=== PATIENT | female | born 2000 | race Caucasian/White ===

== ENCOUNTER → 2024-01-22 17:07 | Outpatient (REF) | payer BC, SELFPAY | LOC: RAD 17:07 | PROVIDERS: ATTENDING PHYSICIAN Physician Assistant Medical; FAMILY PHYSICIAN Family Medicine | DX: M25.561 Pain in right knee (principal) | CPT/HCPCS: 73564 ==

== ENCOUNTER 2024-08-02 18:09 | Emergency (ER) | payer BC, SELFPAY ==
[2024-08-02 18:11] VITALS: BP 112/76
[2024-08-02 21:37] VITALS: BP 122/77
--- NOTE | 2024-08-02 22:49 | ED.GENMED ---
History of Present Illness
General
Chief Complaint: Eye Problems
Source: patient
Exam Limitations: none
Time Seen by Provider: 08/02/24 22:21
Nursing documentation reviewed up to this point in time: agreed with
History of Present Illness
History of Present Illness:
Patient is a 24-year-old female presenting to the emergency department for evaluation of swelling of her right eye. Patient states she woke up this morning with pain and swelling mainly of her right upper lid. She feels that pain in her right lid
has progressed up the day. Patient also feels that her left eyelid is also swollen. Patient denies any discharge from eyes. No loss of vision. Patient denies any pain with movement of her eyes. No headache. Patient denies any fever, chills,
other upper respiratory symptoms including nasal congestion, cough, sore throat.
Of note�patient does states she had similar symptoms 1 month ago and was seen by her primary care who prescribed oral steroids.
Patient denies any known sick contacts although she is a schoolteacher for first-graders.
Patient does wear contact lenses.
Past History
Past History
ED Past Medical History: None
ED Past Surgical History: Other (Pyloric stenosis)
Social History
Tobacco: Non-smoker
Alcohol: None
Personal: Single
Living: other (Student)
Review of Systems
Review of Systems
Allergies reviewed?: Yes
All Other Systems: ROS reviewed and negative except as documented in HPI and ROS
Phy Exam
Physical Exam
Physical Exam:
Vitals: Patient's vital signs are stable. Afebrile
General: Patient is well appearing, no acute distress. Nontoxic appearing
Skin: Warm and dry, no rashes or lesions
Head: Normocephalic, atraumatic
Eyes: Mild erythema and edema to right upper lid. No surrounding erythema of periorbital skin. No notable edema or erythema of left upper lid. Conjunctival clear bilaterally without drainage. EOMs intact bilaterally without pain. Pupils equal
round and reactive light bilaterally. No proptosis or chemosis bilaterally.
Throat: Protecting airway
Neck: Normal ROM, no cervical spine tenderness
Cardiac: Regular rate
Pulm: No apparent respiratory distress
Abdomen: Nondistended
Extremities: No evidence of cyanosis or edema
Neuro: Grossly intact
Psychiatric: Normal affect.
Course
Orders/Labs/Results
Orders:
Orders
08/02/24 22:30
Visual Acuity- Treatment ONCE
08/02/24 23:03
Amoxicillin 875 mg/Clav 125 mg [Augmentin 875 mg/125 mg] 1 tablet PO NOW STA
Vital Signs
Initial and Last Documented VS:
Initial Vital Signs
Temp Pulse Resp BP Pulse Ox
97.6 F 77 20 112/76 99
08/02/24 18:11 08/02/24 18:11 08/02/24 18:11 08/02/24 18:11 08/02/24 18:11
Last Documented Vital Signs
Temp Pulse Resp BP Pulse Ox
97.6 F 80 17 122/77 99
08/02/24 18:11 08/02/24 21:37 08/02/24 21:37 08/02/24 21:37 08/02/24 21:37
MDM/Problems Addressed
Differential Diagnosis Includes:
Not limited to: Blepharitis, hordeolum, preseptal cellulitis, allergic conjunctivitis, orbital cellulitis, etc.
MDM/Problems Addressed:
24-year-old female with swelling to right upper eyelid since this morning. No fevers, headache, pain with eye movements. No ocular discharge or drainage. No true vision loss. Vital stable. Patient is afebrile visual acuity obtained and
documented. Physical exam as above. Patient very well-appearing, in no apparent distress. There is notable erythema and edema to right upper lid without any surrounding cellulitis. No obvious stye left eye without obvious edema or erythema.
Conjunctival clear bilaterally. It is possible that there is an evolving component of preseptal cellulitis given pain and erythema. Although ultimately�suspect this is likely a blepharitis, possible allergic etiology. Do not suspect orbital
cellulitis as patient has no systemic symptoms or pain with extraocular movements. Will plan to cover patient with Augmentin for possible preseptal cellulitic component. Will recommend frequent warm compresses for suspected blepharitis. Advised
close follow-up with eye doctor outpatient to ensure improving. Close return precautions discussed including signs of worsening infection, changes in vision. Ultimately�feel patient stable for discharge with outpatient follow-up. Case discussed
with attending physician. Patient comfortable with this plan.
Chronic conditions affecting care:
N/A
Acute Exacerbation and/or Progression of Chronic Illness:
N/A
*Pulse Oximetry
Patient hypoxic: no
*EKG
Interpreted by ED Provider?: NA
*Clam Dredger Interpretation
Rate: Clam Dredger- N/A
*Critical Care Note
Total Time (30-74mins, 75-104mins- exclusive of procedures): Not Applicable
ED Attending Note
-
Portions of this chart may have been created with voice recognition software.� Occasional wrong word or��sound alike� substitutions may have occurred due to the inherent limitations of voice recognition software.
Discharge Plan
Departure
Patient Disposition: Home (Routine Discharge)
Date of Disposition: 08/02/24
Time of Disposition: 23:04
Patient with high blood pressure during this ER visit?: No
Condition: Good
Covid-19: Not Applicable
Discharge Problem:
Blepharitis of eyelid of right eye
Instructions: Blepharitis, Preseptal Cellulitis ED
Prescriptions:
New
amoxicillin-pot clavulanate 875-125 mg tablet
1 tab PO BID 7 Days Qty: 14 0RF
No Action
Junel 1mg/20mcg
1 tab PO DAILY
levofloxacin 500 MG tablet
500 mg PO DAILY Qty: 7 0RF
Rx Instructions:
start tomorrow 02/28
take on a full stomach
ondansetron 4 MG tablet,disintegrating
4 mg PO TIDPRN PRN (Reason: nausea/vomiting) Qty: 8 0RF
Referrals:
Leo Kowalski MD [Family Provider] - Follow up in 2-3 days
Activity Restrictions/Additional Instructions:
RETURN TO THE EMERGENCY DEPARTMENT WITH ANY FEVERS, HEADACHE, SIGNIFICANT WORSENING IN PAIN/REDNESS/SWELLING OF RIGHT EYE, WORSENING IN CURRENT SYMPTOMS, VISUAL CHANGES OR ANY OTHER CONCERNS
-I suspect you likely have a blepharitis of right eye. You should apply warm compresses frequently. You should take the prescription for Augmentin twice a day for the next week to cover possible evolving preseptal cellulitis
-Given the Tylenol and/or Motrin as needed for pain
-Follow-up with your eye doctor for further evaluation and to ensure that symptoms are improving
Monitor your symptoms closely and return to the emergency department with any acute worsening/new symptoms or any other concerns
Interventions
Interventions:
*Risk Screen - Suicide Last Done: 08/02/24 18:11
*General Assessment Last Done: 08/02/24 18:11
*Neglect/Abuse Screening Last Done: 08/02/24 18:11
ED- Fall Risk Assessment Last Done: 08/02/24 21:38
*Nursing Disposition Last Done: 08/02/24 23:18
Discharge Date and Time
Discharge Date/Time: 08/02/24 23:18
Print Language: MONEGASQUE
[2024-08-02] MEDS: AUGMENTIN 875 MG/125 MG 1 TABLET PO (23:14)
== END 2024-08-02 23:18 | disposition home or self-care (01) ==
LOC: EMR 18:09
PROVIDERS: EMERGENCY PHYSICIAN Student in an Organized Health Care Education/Training Program; FAMILY PHYSICIAN Family Medicine
DX: H01.003 Unspecified blepharitis right eye, unspecified eyelid (principal)
CPT/HCPCS: 99283